=== PATIENT | female | born 2000 | race Caucasian/White ===

== ENCOUNTER 2025-08-08 06:58 | Inpatient (IN) ==
[2025-08-08] MEDS ORDERED: LACTATED RINGERS 1,000 ML IV PRN (07:15)
[2025-08-08] MEDS ORDERED: METOCLOPRAMIDE 10 MG TABLET PO PRN (07:15)
[2025-08-08] MEDS ORDERED: CALCIUM CARBONATE CHEW 500 MG TABLET PO PRN (07:15)
[2025-08-08] MEDS ORDERED: TERBUTALINE 1 MG/ML VIAL SUBQ PRN (07:15)
[2025-08-08] MEDS ORDERED: hydrALAZINE INJ 20 MG/ML VIAL IVP PRN ×2 (07:15)
[2025-08-08] MEDS ORDERED: OXYTOCIN 10 UNIT/ML VIAL IM PRN (07:15)
[2025-08-08] MEDS ORDERED: METHYLERGONOVINE 0.2 MG/ML VIAL IM PRN (07:15)
[2025-08-08] MEDS ORDERED: LABETALOL 20 MG/4 ML SYRINGE IVP PRN ×3 (07:15)
[2025-08-08] MEDS ORDERED: TRANEXAMIC ACID IN NACL 1,000 MG/100 ML BAG IV PRN (07:15)
[2025-08-08] MEDS ORDERED: CARBOPROST TROMETHAMINE 250 MCG/ML VIAL IM PRN (07:15)
[2025-08-08] MEDS ORDERED: ONDANSETRON 4 MG/2 ML VIAL IVP PRN (07:15)
[2025-08-08] MEDS ORDERED: METOCLOPRAMIDE 10 MG/2 ML VIAL IVP PRN ×2 (07:15→16:04)
[2025-08-08] MEDS ORDERED: fentaNYL 100 MCG/2 ML VIAL IVP PRN (07:15)
[2025-08-08] MEDS ORDERED: ONDANSETRON ODT 4 MG TABLET PO PRN (07:15)
[2025-08-08] MEDS ORDERED: SODIUM CHLORIDE FLUSH 0.9% 10 ML SYRINGE IVP PRN (07:15)
[2025-08-08 08:47] LABS: HCT - HEMATOCRIT 35.6 % (37.0-47.0); HGB - HEMOGLOBIN 11.2 g/dL (12.0-16.0); MEAN PLATELET VOLUME 11.0 fL (7.9-10.8); NRBC ABSOLUTE COUNT (AUTO) 0.00 x10^3/uL; NUCLEATED RED BLOOD CELLS AUTO 0.0 /100WBC; PLT - PLATELET COUNT 219 10^3/uL (130-450)
[2025-08-08 08:53] LABS: ALT ALANINE AMINOTRANSFERASE 7.0 IU/L (10-60); AST ASPARTATE AMINOTRANSFERASE 9.0 IU/L (10-42); BUN - BLOOD UREA NITROGEN 5.0 mg/dL (6-20); CARBON DIOXIDE - CO2 20.0 mmol/L (21-32); CREATININE 0.3 mg/dL (0.6-1.3); GFR - MDRD 271.0 (>89)
[2025-08-08 09:27] LABS: PLATELET ESTIMATE, MANUAL NORMAL (130-450,000) (NORMAL); PLATELET MORPHOLOGY NORMAL APPEARANCE (NORMAL); RBC MORPHOLOGY (MULTIPLE) 1+ ANISOCYTOSIS (NORMAL); WBC MORPHOLOGY (MULTIPLE) NORMAL APPEARANCE (NORMAL)
--- NOTE | 2025-08-08 10:44 | ANESTHESIA PROCEDURE NOTE ---
Pre-Anesthesia VS, & Labs Diagnosis Surgical Diagnosis:: labor induction Procedure Procedure: labor epidural Vitals Vital Signs: Temp Pulse Resp BP Pulse Ox 36.5 C 100 16 126/71 95 08/08/25 07:55 08/08/25 07:32 08/08/25 07:55 08/08/25 07:55 08/08/25 07:55 NPO NPO: Other Is Patient ?: Yes Lab Results Current Lab Results: Laboratory Tests 08/08/25 08:25: WBC 6.7, RBC 4.24, Hgb 11.2 L, Hct 35.6 L, MCV 84.0, MCH 26.4 L, MCHC 31.5 L, Plt Count 219, MPV 11.0 H, Neut # (Auto) 4.6, Lymph # (Auto) 1.6, Blount # (Auto) 0.4, Eos # (Auto) 0.0, Baso # (Auto) 0.0, Absolute Nucleated RBC 0.00, Nucleated RBC % 0.0, WBC Morphology NORMAL APPEARANCE, Platelet Estimate NORMAL (130-450,000), Platelet Morphology NORMAL APPEARANCE, RBC Morph Micro Appear 1+ ANISOCYTOSIS, Sodium 133 L, Potassium 3.7, Chloride 105, Carbon Dioxide 20 L, Anion Gap 8.0, BUN 5 L, Creatinine 0.3 L, Estimated GFR (MDRD) 271, Glucose 89, Calcium 8.6, Ferritin 24.4, Total Bilirubin 0.3, AST 9 L, ALT 7 L, Alkaline Phosphatase 156 H, Total Protein 5.9 L, Albumin 3.3, Globulin 2.6, Albumin/Globulin Ratio 1.3, Blood Type O POSITIVE, Antibody Screen NEGATIVE 08/08/25 08:25 08/08/25 08:25 Meds/Allgy Home Medications Ambulatory Orders Medication Instructions Recorded Confirmed ferrous sulfate 325 mg (65 mg 325 mg PO Q OTHER DAY #9 0 tabs 04/26/25 08/05/25 iron) tablet (FeroSul) vitamins no.154-ferrous 1 tab PO .daily #90 t abs 04/26/25 08/05/25 fumarate 27 mg-folic acid 1 mg tablet ondansetron 4 mg disintegrating 4 mg PO QID PRN nausea and 06/19/25 08/05/25 tablet vomiting #14 tabs blood sugar diagnostic (True #50 strips 07/05/2507/08 Metrix Glucose Test Strip) blood-glucose meter (True Metrix #1 ea 07/05/25 Glucose Meter) lancets 30 gauge (TRUEplus Lancets) #100 ea 07/05/25 1 blood sugar diagnostic (FreeStyle #100 ea 07/22/25 Lite Strips) blood-glucose meter (FreeStyle #1 ea 07/22/25 07/22/25 Lite Meter kit) lancets 28 gauge (FreeStyle #100 ea 07/22/25 07/22/25 Lancets) Allergies Allergies Allergy/AdvReac Type Severity Reaction Status Date / Time No Known Drug Allergies Allergy Verified 08/05/25 11:29 PFSH Active Problems All Active Problems (Updated 08/08/25 @ 07:16 by Carole Hansen MD) Encounter for elective induction of labor (Acute) Heartburn during (Acute) Nausea/vomiting in (Acute) Orthostatic hypotension (Acute) Impaired glucose tolerance during , antepartum (Acute) Axillary fullness (Acute) Pruritus of (Acute) Anemia (Chronic) Transient hypotension (Acute) Acute viral syndrome (Acute) Glucose intolerance of (Acute) Supervision of other normal (Acute) Anemia affecting (Acute) Anemia affecting in second trimester (Acute) Late care affecting in second trimester (Acute) Vaginal discharge during in second trimester (Acute) (Acute) Medical History Medical History (Updated 08/08/25 @ 07:16 by Carole Hansen MD) Fibromyalgia psychosis depression Surgical History Surgical History H/O LEEP No pertinent past surgical history Family History Family History Maternal grandmother Diabetes CVA (cerebral vascular accident) Paternal grandfather Congestive heart failure Social History Social History Smoking Status: Former smoker Do you dip or chew tobacco?: No Do you vape?: No Patient requests smoking cessation consult: No Living arrangement: At home Marital Status: Living Condition: With family Level: Independent Do you feel safe in your home environment?: Yes History of physical, verbal, emotional, or financial abuse?: No ETOH Use: None Substance Use: denies use POLST Patient has POLST: No Anesthesia Exam (Expanded) Exam General: Alert, Oriented x3 and Cooperative Dental: WNL Mouth Opening: Greater than 4 Fingerbreadths Neck Mobility: Normal Mallampati classification: I and II Thyromental Distance: greater than 6 cm Respiratory: Lungs clear Cardiovascular: Regular rate Exam Exam Vital Signs: Vital Signs x48h Temp Pulse Resp BP BP Pulse Ox 08/08/25 07:55 36.5 C 16 126/71 95 08/08/25 07:32 36.5 C 100 16 126/71 Plan Plan Anesthesia Type: Epidural Consent for Procedure(s) Verified and Reviewed: Yes Code Status: Attempt Resuscitation ASA Classification ASA classification: 2-Mild systemic disease Is this case an emergency?: No
[2025-08-08] MEDS ORDERED: ROPIVACAINE 0.2% 200 MG/100 ML BAG EP ONE (15:21)
[2025-08-08] MEDS ORDERED: NALOXONE 0.4 MG/ML VIAL IVP PRN ×2 (16:04→21:41)
[2025-08-08] MEDS ORDERED: NALBUPHINE 10 MG/ML AMP IVP PRN (16:04)
[2025-08-08] MEDS ORDERED: ePHEDrine 50 MG/ML VIAL IVP PRN (16:04)
[2025-08-08] MEDS: LACTATED RINGERS 1,000 ML IV SCH (16:08)
[2025-08-08] MEDS ORDERED: LIDOCAINE-MPF 2% 5 ML VIAL ONE (16:16)
[2025-08-08] MEDS ORDERED: BUPIVACAINE 0.25% PF 10 ML VIAL ONE (17:16)
--- NOTE | 2025-08-08 17:20 | HISTORY & PHYSICAL EXAMINATION ---
Admit History Visit Reason Visit Reason: Contractions : 3 Parity: 2 Care: positive [facility] Risk/History: positive Other (late to care) Complications This : positive Other (baby small then ok. ) Smoking Status: Former smoker Other Maternal History Other Maternal History: admitted for induction but was in early labor when she got here. No induction meds given so far and she is 5 cm now and just got epidural. Mili is replacing it as she is not comfortable. She was late to care, starting with us and 26 weeks. She has gained 10 pounds since then. She did not have her US until 26+ weeks. Expected Delivery Route/Plan LMP: MUNDO by LMP: U/S: limited bedside US in ED on 03/30 at 20wk: MUNDO 08/13/25 Final MUNDO: 08/13/2025 - Late to care due to insurance issues. - Has NOT completed anatomy US - given number several times. Encouraged to schedule in person after 06/24 visit. - done on 06/27. F/u growth in 3 weeks - ordered. - Severe anemia - Hgb 9.4, ferritin 3.8 on 06/15 - referred for iron infusion. Hasn't yet scheduled as of 06/24 visit. - received Fe infusion on 07/05 - H/o psychosis - no current mood concerns this . Plan to monitor closely in period. - H/o PPH, with first delivery with blood transfusion, prolonged IOL. No hemorrhage with 2nd. - H/o LEEP - records requested. Plan for PAP . 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 Reports had LEEP but did not receive record. GC/CT: neg HSV: denies self/partner Genetic screening/counselling: AFP: FAS: 06/27/25 Placenta: posterior w/o previa Cord: 3vc AIDA: 14.8cm EFW: 1848g, no %tile given 50gm GCT: 141 3 hr GTT: unable to tolerate, supplies sent for BG checks, never got the monitor and never did this. TDAP: 06/10/25 Breast Pump: accepts and given 3rd trimester H/H PLT 9.4/30.2 294 3rd trimester RPR NR RSV: 06/24/2025 GBS: collected 07/22 neg EPDS: Delivery plan: IOL scheduled for 08/08 at 8AM. contraception: Mirena IUD at 6wk PP OB Visit Log Initial Weight: Not Recorded HPI Current : Vital Signs Temperature 36.7 C 08/08/25 13:00 Pulse Rate 98 08/08/25 13:00 Respiratory Rate 16 08/08/25 13:00 Blood Pressure 127/62 08/08/25 13:00 O2 Saturation 95 08/08/25 07:55 NST Procedure NST Procedure: not indicated. presented in normal labor. Meds/Allgy Home Medications Ambulatory Orders Medication Instructions Recorded Confirmed ferrous sulfate 325 mg (65 mg 325 mg PO Q OTHER DAY #9 0 tabs 04/26/25 08/08/25 iron) tablet (FeroSul) ondansetron 4 mg disintegrating 4 mg PO QID PRN nausea and 06/19/25 08/08/25 tablet vomiting #14 tabs blood sugar diagnostic (True #50 strips 07/05/2507/08 Metrix Glucose Test Strip) blood-glucose meter (True Metrix #1 ea 07/05/25 Glucose Meter) lancets 30 gauge (TRUEplus Lancets) #100 ea 07/05/25 1 blood sugar diagnostic (FreeStyle #100 ea 07/22/25 Lite Strips) blood-glucose meter (FreeStyle #1 ea 07/22/25 07/22/25 Lite Meter kit) lancets 28 gauge (FreeStyle #100 ea 07/22/25 07/22/25 Lancets) vitamins no.154-ferrous 1 tab PO DAILY 08/08/25 fumarate 27 mg-folic acid 1 mg tablet Allergies Allergies Allergy/AdvReac Type Severity Reaction Status Date / Time No Known Drug Allergies Allergy Verified 08/05/25 11:29 PFSH Active Problems All Active Problems (Updated 08/08/25 @ 17:16 by Lety Osei MD) Normal labor (Acute) Heartburn during (Acute) Nausea/vomiting in (Acute) Orthostatic hypotension (Acute) Impaired glucose tolerance during , antepartum (Acute) Axillary fullness (Acute) Pruritus of (Acute) Anemia (Chronic) Transient hypotension (Acute) Glucose intolerance of (Acute) Supervision of other normal (Acute) Anemia affecting (Acute) Anemia affecting in second trimester (Acute) Late care affecting in second trimester (Acute) Vaginal discharge during in second trimester (Acute) (Acute) Medical History Medical History (Updated 08/08/25 @ 17:16 by Lety Osei MD) Fibromyalgia psychosis depression Surgical History Surgical History H/O LEEP No pertinent past surgical history Family History Family History Maternal grandmother Diabetes CVA (cerebral vascular accident) Paternal grandfather Congestive heart failure Social History Social History Smoking Status: Former smoker Do you dip or chew tobacco?: No Do you vape?: No Patient requests smoking cessation consult: No Living arrangement: At home Marital Status: Living Condition: With family Level: Independent Do you feel safe in your home environment?: Yes History of physical, verbal, emotional, or financial abuse?: No ETOH Use: None Substance Use: denies use POLST Patient has POLST: No Review of Systems uncomfortable and ready to be done with this . no headache. no n/v. some heartburn. Physical Abdominal Exam Vital Signs: Temp Pulse Resp BP Pulse Ox 36.7 C 98 16 127/62 95 08/08/25 13:00 08/08/25 13:00 08/08/25 13:00 08/08/25 13:00 08/08/25 07:55 Contraction Intensity: positive Mild to moderate Uterine Resting Tone: positive Soft Monitoring Heart Rate Baseline: 135 Strip Review: positive Category I Presentation Presentation: positive Vertex (confirmed by US) Vaginal Exam Membranes: positive Membranes ruptured (AROM at 1430 clear fluid) Dilation (in cm): 5 Effacement (%): 60 Station: positive -3 Cervical Position: positive Midposition Speculum Exam Speculum Exam Performed: positive No Other Notes Labor Progress Note/Additional Text: Patient was closed on admission but was harman actively. progressed to 4 cm and AROM done. now 5 cm. still high. Was using nitrous. now with epidural getting replaced. will start pitocin if needed Plan for Labor Plan For Labor I expect patient to be DC'd or transferred within 96 hours.: Yes Conclusion/Plan Problem List (1) Normal labor: Plan: ocytocin as needed. Anticipate Lab Results 08/08/25 08:25 08/08/25 08:25
[2025-08-08] MEDS: SODIUM CHLORIDE FLUSH 0.9% 10 ML SYRINGE IVP SCH (18:20)
[2025-08-08] MEDS: LACTATED RINGERS 500 ML IV ONE (18:20)
[2025-08-08] MEDS: ROPIVACAINE 0.2% 200 MG/100 ML BAG EP PRN (18:40)
[2025-08-08] MEDS: ONDANSETRON 4 MG/2 ML VIAL IVP PRN (19:26)
[2025-08-08] MEDS: OXYTOCIN/SODIUM CHLORIDE 500 ML IV SCH (20:30)
[2025-08-08] MEDS: OXYTOCIN/SODIUM CHLORIDE 500 ML IV PRN (20:45)
[2025-08-08 21:38] LABS: ESTIMATED AVERAGE GLUCOSE 80 mg/dL (70-100); HEMOGLOBIN A1c% 4.4 % (4.27-6.07)
[2025-08-08] MEDS ORDERED: HYDROCORTISONE 1% CREAM 28 GM TUBE TOP PRN (21:41)
[2025-08-08] MEDS ORDERED: SIMETHICONE CHEW 80 MG TABLET PO PRN (21:41)
--- NOTE | 2025-08-08 21:59 | DELIVERY NOTE ---
Delivery Note Labor Labor: positive Spontaneous, Augmented by ARM and Augmented by oxytocin (at the very end of labor just before pushing) Infant Delivery Method Infant Delivery Method: positive Spontaneous vaginal delivery Presentation Presentation: positive Vertex and OA - occiput anterior Nuchal Cord Nuchal Cord: positive None Amniotic Fluid Description Amniotic Fluid Description: positive Clear Episiotomy Type Episiotomy Type: positive None Laceration Laceration: positive None Delivery Outcome Delivery Date: 08/08/25 Delivery Time: 20:39 [place] : positive Placed in direct skin contact with mother, Bulb syringe, Stimulated, Warmer used and Other (required some resuscitation by RN at warmer. ) sex: positive Female Cord Cord: positive 3 vessels Placenta Placenta: positive Intact and Spontaneous Estimated Blood Loss Estimated Blood Loss (in cc): 300 Post Delivery Events Post Delivery Events: positive No post delivery events Delivery Comments (Free Text/Narrative) Delivery Comments (Free Text/Narrative): Patient admitted for induction but was in labor. progressed without medications. AROM done. Epidural x 2 and then very comfortable. called in that she was pushing but she was only 7 cm but cervix very thin and head low. started just 2 mu of pitocin to help get that last bit of cervix to go away. Once it was gone, she pushed thru about 3 contractions to deliver her baby in OA position. FOBAndres, helped deliver her. Took a bit of turning to figure out how she wanted to come out, but then her shoulders delivered and Andres lifted her up to mom's belly. At 30 sec she was barely crying so cord was clamped and cut. She let out a big cry but was taken to the warmer and had some PPV there. See RN note. Placenta delivered spontaneously. Uterus contracted well. Pitocin was started after placental delivery. No lacerations. occassional bleeding. Small piece of trailing membrane removed from cervix. minimal bleeding after that. When I left, mom had baby on her chest.
[2025-08-08] MEDS: ACETAMINOPHEN 500 MG TABLET PO PRN (22:23)
[2025-08-08] MEDS: IBUPROFEN 600 MG TABLET PO PRN (22:23)
[2025-08-08] MEDS: WITCH HAZEL/GLYCERIN 1 PAD TOP PRN (23:30)
--- NOTE | 2025-08-09 09:20 | PROVIDER PROGRESS NOTE ---
Subjective Prog Note Date Prog Note Date: 08/09/25 Prog Note Time: 09:14 Subjective Pt reports feeling: Improved Subjective: PPD #1 s/p late last evening. Patient was scheduled for induction of labor and presented in labor. She has been doing well since delivery and denies concerns. She has been ambulating, voiding, and eating without problems. She has a mild OSBORN this morning, which she attributes to caffeine withdrawal, and her spouse went to get her a coffee. Baby is at the bedside and is breast/formula feeding per patient request (wants spouse to feed the baby at night). Current Medications Current Medications Current Medications: Current Medications Generic Name Dose Route Start Last Admin Trade Name Freq PRN Reason Stop Dose Admin Acetaminophen 1,000 mg 08/08/25 07:15 08/09/25 06:16 Acetaminophen 500 Mg Tablet PO 1,000 mg Q8HR PRN Administration Mild Pain or Fever>38C(100.4F) Calcium Carbonate/Glycine 1,000 mg 08/08/25 07:15 Calcium Carbonate Chew 500 Mg Tablet PO Q6HR PRN Heartburn Carboprost Tromethamine 250 mcg 08/08/25 07:15 Carboprost Tromethamine 250 Mcg/Ml Vial IM .ONCE PRN Hemorrhage Diphenhydramine HCl 25 mg 08/08/25 21:41 Diphenhydramine 25 Mg Capsule PO QPM PRN Insomnia Docusate Sodium 100 mg 08/09/25 09:00 Docusate Sodium 100 Mg Capsule PO BID GEORGE Hydralazine HCl 5 - 10 mg 08/08/25 07:15 Hydralazine Inj 20 Mg/Ml Vial IVP Q20M PRN SBP> or= 160 OR DBP> or= 110 Protocol Hydralazine HCl 10 mg 08/08/25 07:15 Hydralazine Inj 20 Mg/Ml Vial IVP .ONCE PRN SBP> or= 160 OR DBP> or= 110 Protocol Hydrocortisone 1 applic 08/08/25 21:41 Hydrocortisone 1% Cream 28 Gm Tube TOP QID PRN Hemorrhoids Ibuprofen 600 mg 08/08/25 21:41 08/09/25 06:15 Ibuprofen 600 Mg Tablet PO 600 mg Q6HR PRN Administration Moderate Pain (Level 4-6) Labetalol HCl 20 - 80 mg 08/08/25 07:15 Labetalol 20 Mg/4 Ml Syringe IVP Q10M PRN SBP> or= 160 OR DBP> or= 110 Protocol Labetalol HCl 20 mg 08/08/25 07:15 Labetalol 20 Mg/4 Ml Syringe IVP .ONCE PRN SBP> or= 160 OR DBP> or= 110 Protocol Labetalol HCl 20 - 40 mg 08/08/25 07:15 Labetalol 20 Mg/4 Ml Syringe IVP Q10M PRN SBP> or= 160 OR DBP> or= 110 Protocol Methylergonovine Maleate 0.2 mg 08/08/25 07:15 Methylergonovine 0.2 Mg/Ml Vial IM .ONCE PRN Hemorrhage Metoclopramide HCl 5 mg 08/08/25 07:15 Metoclopramide 10 Mg Tablet PO Q6HR PRN Nausea / Vomiting Misoprostol 600 mcg 08/08/25 07:15 Misoprostol 200 Mcg Tablet BC .ONCE PRN Hemorrhage Nifedipine 10 - 20 mg 08/08/25 07:15 Nifedipine 10 Mg Capsule PO Q20M PRN SBP> or= 160 OR DBP> or= 110 Protocol Ondansetron HCl 4 mg 08/08/25 07:15 Ondansetron Odt 4 Mg Tablet PO Q4HR PRN Nausea / Vomiting Simethicone 80 mg 08/08/25 21:41 Simethicone Chew 80 Mg Tablet PO TID PRN Gas Sodium Chloride 10 ml 08/08/25 07:15 Sodium Chloride Flush 0.9% 10 Ml Syringe IVP PRN PRN NEEDED PER PROVIDER ORDERS Witch Jane/Glycerin 1 pad 08/08/25 21:41 [place] Jane/Glycerin 1 Pad TOP PRN PRN ITCHING Objective Vital Signs/Intake & Output Reviewed Vital Signs: Yes Vital Signs: Vital Signs x48h Temp Pulse Resp BP Pulse Ox 08/09/25 06:18 37 C 78 16 126/72 97 08/09/25 03:00 37.0 C 73 15 117/64 94 Moderate HTN at time of delivery 150s/80s < 4 hrs apart Intake & Output: Intake & Output 08/06/25 08/07/25 08/08/25 08/09/25 23:59 23:59 23:59 23:59 Intake Total 1100 / 1100 Output Total 850 / 850 730 / 730 Balance 250 / 250 -730 / -730 Weight (kg) 71.668 kg Objective General Appearance: positive No acute distress and Alert Respiratory: positive No respiratory distress and Breath sounds nml Cardiovascular: positive Regular rate & rhythm Abdomen: positive Non-tender and Other (Uterine fundus firm, nontender at U-1) Skin: positive Color nml Extremities: positive Non-tender and Full ROM; negative Pedal edema Neurologic/Psychiatric: positive Oriented x3 and Mood/affect nml Lab Results 08/08/25 08:25 08/08/25 08:25 Other Labs: Lab Results x24hrs 08/08/25 Range/Units 08:25 WBC 6.7 (4.8-10.8) x10^3/uL RBC 4.24 (4.20-5.40) 10^6/uL Hgb 11.2 L (12.0-16.0) g/dL Hct 35.6 L (37.0-47.0) % MCV 84.0 (81.0-99.0) fL MCH 26.4 L (27.0-31.0) pg MCHC 31.5 L (32.0-36.0) g/dL Plt Count 219 (130-450) 10^3/uL MPV 11.0 H (7.9-10.8) fL Neut # (Auto) 4.6 (1.5-6.6) 10^3/uL Lymph # (Auto) 1.6 (1.5-3.5) 10^3/uL Miller # (Auto) 0.4 (0.0-1.0) 10^3/uL Eos # (Auto) 0.0 (0.0-0.7) 10^3/uL Baso # (Auto) 0.0 (0.0-0.1) 10^3/uL Absolute Nucleated RBC 0.00 x10^3/uL Nucleated RBC % 0.0 /100WBC WBC Morphology NORMAL APPEARANCE (NORMAL) Platelet Estimate NORMAL (130-450,000) (NORMAL) Platelet Morphology NORMAL APPEARANCE (NORMAL) RBC Morph Micro Appear 1+ ANISOCYTOSIS (NORMAL) Estimat Average Glucose 80 (70-100) mg/dL Hemoglobin A1c % 4.4 (4.27-6.07) % Blood Type O POSITIVE Antibody Screen NEGATIVE Assessment/Plan Problem List (1) care following vaginal delivery: Impression: PPD #1 s/p and doing well. VS notable for brief period of moderate HTN at the time of pushing/delivery. All other BP's well wnl. This is likely related to second stage of labor and not hypertensive d/o of . - Cont to monitor BP. - Cont routine PP care and support. - Discussed that initiating formula early may affect milk supply overall. She may wish to try exclusive at first then pumping once established. - Anticipate d/c home tomorrow morning.
[2025-08-09] MEDS: DOCUSATE SODIUM 100 MG CAPSULE PO SCH (09:56)
[2025-08-09] MEDS ORDERED: LIDOCAINE JELLY 2% 6 ML JEL.PF.APP ONE (22:52)
[2025-08-09] MEDS: LIDOCAINE JELLY 2% 6 ML JEL.PF.APP TOP PRN (23:00)
--- NOTE | 2025-08-10 10:19 | Discharge Summary ---
Discharge Summary Admit Date: 08/08/25 Discharge Date: 08/10/25 Discharging Provider: Carole Hansen MD [facility] History of Present Illness: Admission Diagnosis: - SIUP at term - Fe deficiency anemia - Late to care - Glucose intolerance (abnormal 1hr, unable to tolerate 3hr) - H/o PPH - H/o LEEP - H/o psychosis Discharge Diagnosis: - Same, delivered Procedures: Hospital Course: Jossue is a 25 yo who presented for IOL at term. She was found to be in early labor on admission. She underwent AROM and very brief augmentation with pitocin. She had an with EBL 300cc. course uncomplicated. Condition on Discharge: SUBJECTIVE: She feels well. Pain is well controlled with current medications. The baby is doing well. Baby is feeding via breast feeding and formula supplementation. She is ambulating well, tolerating normal diet, urinating without difficulty. Lochia is reported as light. Reports that her mood is good, feeling much better than during and more like herself. OBJECTIVE: Vital signs reviewed GENERAL: NAD CHEST: non labored respirations ABD: soft, non tender, fundus firm EXT: no lower extremity edema; No evidence of DVT LAB & IMAGING STUDIES: See below PLAN: Plan for discharge home with follow up in clinic in 1 week - scheduled for day after . Discussed can do telehealth visit if she is feeling well and prefers to not come in. Reviewed home care instructions and medications. Recommended that she continue iron supplemention for another 1-2 months - Hgb much improved but ferritin still low after iron infusion. Patient counseled regarding signs and symptoms of infection, excessive bleeding, vaginal rest and activity restrictions. Planning for Mirena IUD at 6wk visit. Discussed that additional support is available in our clinic if needed. ALLERGIES Allergies Allergy/AdvReac Type Severity Reaction Status Date / Time No Known Drug Allergies Allergy Verified 08/05/25 11:29 MEDICATIONS Ambulatory Orders Medication Instructions Recorded Confirmed ferrous sulfate 325 mg (65 mg 325 mg PO Q OTHER DAY #9 0 tabs 04/26/25 08/08/25 iron) tablet (FeroSul) vitamins no.154-ferrous 1 tab PO DAILY 08/08/25 fumarate 27 mg-folic acid 1 mg tablet PHYSICAL EXAM AT DISCHARGE Vital Signs: Vital Signs x48h Temp Pulse Resp BP Pulse Ox 08/10/25 09:49 98.3 F 92 16 125/72 97 08/10/25 06:25 98.2 F 57 L 18 121/74 98 LABS 08/08/25 08:25 08/08/25 08:25 TIME SPENT Time Spent in Discharge (Minutes): 20 Discharge Plan Discharge Patient Disposition: Home, Self Care Prescriptions: Continued ferrous sulfate [FeroSul] 325 mg (65 mg iron) tablet 325 mg PO Q OTHER DAY Qty: 90 4RF Rx Instructions: best if taken in the morning. PNV no.154-iron fumarate-folic 27 mg iron- 1 mg tablet 1 tab PO DAILY Discontinued (DME) blood-glucose meter [True Metrix Glucose Meter] [facility] [place] See Rx Instructions .ROUTE .COMPLEX Qty: 1 0RF Dose Instruction: CHECK BLOOD SUGAR FASTING IN THE MORNING AND THEN 2 HOURS AFTER BREAKFAST, LUNCH, AND DINNER. KEEP LOG OF VALUES Rx Instructions: CHECK BLOOD SUGAR FASTING IN THE MORNING AND THEN 2 HOURS AFTER BREAKFAST, LUNCH, AND DINNER. KEEP LOG OF VALUES (DME) True Metrix Glucose Test Strip Strip See Rx Instructions .ROUTE .COMPLEX Qty: 50 0RF Dose Instruction: CHECK BLOOD SUGAR FASTING IN THE MORNING AND THEN 2 HOURS AFTER BREAKFAST, LUNCH AND DINNER. KEEP LOG OF VALUES Rx Instructions: CHECK BLOOD SUGAR FASTING IN THE MORNING AND THEN 2 HOURS AFTER BREAKFAST, LUNCH AND DINNER. KEEP LOG OF VALUES (DME) lancets [TRUEplus Lancets] 30 gauge [facility] Rx Instructions .ROUTE .COMPLEX Qty: 100 0RF Dose Instruction: CHECK BLOOD SUGARS FASTING IN THE MORNING AND THEN 2 HOURS AFTER BREAKFAST, LUNCH AND DINNER Rx Instructions: CHECK BLOOD SUGARS FASTING IN THE MORNING AND THEN 2 HOURS AFTER BREAKFAST, LUNCH AND DINNER ondansetron 4 mg tablet,disintegrating 4 mg PO QID PRN (Reason: nausea and vomiting) Qty: 14 0RF (DME) FreeStyle Lite Strips Strip See Rx Instructions .Route Qty: 100 0RF Rx Instructions: Check blood sugars four times daily: fasting in the morning and then 2 hours after breakfast, lunch, and dinner (DME) blood-glucose meter [FreeStyle Lite Meter] Kit See Rx Instructions .Route Qty: 1 0RF Rx Instructions: Check blood sugars four times daily: fasting in the morning and then 2 hours after breakfast, lunch, and dinner (DME) lancets [FreeStyle Lancets] 28 gauge misc See Rx Instructions .Route Qty: 100 0RF Rx Instructions: Check blood sugars four times daily: fasting in the morning and then 2 hours after breakfast, lunch, and dinner Activity Restrictions/Additional Instructions: You may alternate over the counter acetaminophen and ibuprofen as needed for pain: - ibuprofen 600mg every 6 hours as needed - acetaminophin 650mg every 4 hours as needed or 1000mg every 6 hours as needed. If you are struggling with constipation, over the counter miralax or senna may be helpful. Continue over the counter iron supplementation: - One option is ferrous sulfate 325 mg once every OTHER day. Taking iron every other day may help reduce side effects and improve absorption. - Take iron in the morning, on an empty stomach, with a full glass of water or orange juice (vitamin C helps your body absorb iron). - Avoid tea, coffee, milk, and calcium supplements for at least one hour after taking iron, as these can block absorption. - If iron upsets your stomach, you may take it with a small amount of food, but this can lower how much iron your body absorbs. - Common side effects include nausea, constipation, diarrhea, and dark stoolsthese are usually not serious. Print Language: Amharic Patient Instructions: After a Vaginal , Pain After Childbirth, Breast Care After Follow-up Care: Carole Hansen MD [Primary Care Provider, Obstetrics/Gynecology]
[2025-08-10 11:10] VITALS: BP 127/73; TEMP 98.2; O2SAT 99
--- NOTE | 2025-08-10 11:33 | Labor Flowsheet ---
Labor Flowsheet Datetime Report Generated by CPN: 08/10/2025 11:32 Datetime: 08/10/2025 11:09 VITAL SIGNS NBP Sys/Coral/Mean (mmHg): 127 : 73 : 85 Pulse: 76 SpO2 (%): 99 Datetime: 08/08/2025 23:00 Stage of : Datetime: 08/08/2025 21:33 Medication Comments: Datetime: 08/08/2025 21:30 LaborFlag: Labor Datetime: 08/08/2025 21:15 PAIN Pain Scale: 3 Datetime: 08/08/2025 20:49 Communication Comments: Epidural pump stopped Datetime: 08/08/2025 20:42 STAGE 2 Stage 2 Comments: Placenta delivered Datetime: 08/08/2025 20:39 Contraction Comments: Patient pushing with contractions Comments: MARTHA baseline patient pushing / audible decels while pushing COMMUNICATION Communication: RN at Bedside; Provider at Bedside Datetime: 08/08/2025 20:30 ASSESSMENT A Monitor Mode: External US FHR Baseline Rate : 135 Variability: Moderate 6-25 bpm Accelerations: 15X15 Decelerations: None Oxygen Method: Room Air Datetime: 08/08/2025 20:29 MEDICATIONS Pitocin (milliunits): Started @ 2 Datetime: 08/08/2025 20:28 Provider Notified (Name): Dr. Osei Datetime: 08/08/2025 20:18 VAGINAL EXAM Dilatation (cm): 9.0 Exam by: Dr Osei Vaginal Exam Comments: Paper thi Datetime: 08/08/2025 20:15 UTERINE ACTIVITY Monitor Mode: External Frequency (min): 1-1.5 Duration (sec): 40-100 Pattern: Normal: <= 5 Contractions in 10 Minutes Category: Category I Datetime: 08/08/2025 20:09 Provider Reviewed Strip: Yes Notification Reason: Labor Status Datetime: 08/08/2025 20:00 Quality: Moderate Resting Tone (Palpate): Relaxed PATIENT CARE IV/Blood Work: IV Bolus Started Datetime: 08/08/2025 19:51 Patient Position/Activity: High Fowlers Datetime: 08/08/2025 19:37 MATERNAL ASSESSMENT Level of Consciousness: Alert DTR's/Clonus: DTRs Absent; No Clonus Headache: Denies Breath Sounds, Left: Clear and Equal Breath Sounds, Right: Clear and Equal Nausea/Vomiting: Present RUQ Epigastric Pain: Denies Datetime: 08/08/2025 19:33 Effacement (%): 90 Station: 2 Datetime: 08/08/2025 19:22 Patient Care Comments: Received report from [place], RN. Strip being charted from here on out was by this RN/ previous RN still logged in Datetime: 08/08/2025 19:21 Respirations: 18 Temperature (C): 37.0 Datetime: 08/08/2025 18:39 Cervix, Consistency: Soft Cervix, Position: Midposition Datetime: 08/08/2025 17:34 ANESTHESIA Epidural Procedure: Completed Datetime: 08/08/2025 17:19 Anesthesia Comments: original catheter pulled Datetime: 08/08/2025 17:05 Monitor Interventions for UA: [place] Adjusted Datetime: 08/08/2025 16:42 I/O Interventions: [place] Cath Inserted Datetime: 08/08/2025 13:38 Membranes Rupture Method: Artificial Amniotic Fluid Color: Clear Amniotic Fluid Amount: Small Vaginal Bleeding: Normal Show
== END 2025-08-10 11:15 | disposition home or self-care (01) | DRG 807 ==
LOC: WFO 06:58 → FBP 06:58
PROVIDERS: ADMIT Obstetrics & Gynecology; ATTEND Obstetrics & Gynecology
DX: Z37.0 Single live birth; R03.0 Elevated blood-pressure reading, without diagnosis of hypertension; O99.892 Other specified diseases and conditions complicating childbirth; O99.814 Abnormal glucose complicating childbirth; Z3A.39 39 weeks gestation of pregnancy; Z87.891 Personal history of nicotine dependence; O99.02 Anemia complicating childbirth; D50.9 Iron deficiency anemia, unspecified